=== PATIENT | female | born 1995 | race Hispanic/Latino ===

== ENCOUNTER 2018-03-30 21:29 | Emergency (ER) | payer OTHER ==
[2018-03-30 22:17] LABS: Urine Blood 3+ (NEG); Urine Glucose NEGATIVE (NEG); Urine Protein NEGATIVE (NEG)
[2018-03-30 22:26] LABS: Absolute Lymphocytes (CBC) 3.1 K/uL (0.7-4.9); Absolute Monocytes 0.7 K/uL (0.1-1.3); Absolute Neutrophil 5.8 K/uL (1.8-8.0); Basophils % 0.7 % (0-1.3); Eosinophils % 1.2 % (0-4.4); Hematocrit 39.5 % (36.0-45.0); Lymphocytes % 31.9 % (15.3-44.8); MPV 8.1 fL (7.6-11.3); Monocytes % 7.6 % (3.3-12.3); RBC Red Blood Cell Count 4.58 M/uL (3.86-4.86)
[2018-03-30] MEDS ORDERED: ONDANSETRON 4 MG/2 ML VIAL ONE (22:36)
[2018-03-30] MEDS ORDERED: KETOROLAC 30 MG/ML INJ ONE (22:36)
[2018-03-30 22:40] LABS: BUN Blood Urea Nitrogen 12 mg/dL (7-18); Bicarbonate 28 mmol/L (21-32); Glucose Level 105 mg/dL (74-106); Potassium 3.8 mmol/L (3.5-5.1); Sodium Level 141 mmol/L (136-145)
--- NOTE | 2018-03-30 23:58 | EDPHYS ---
Physician Documentation [facility] Name: Bren Angulo Age: 22 yrs Sex: Female : 1995 Arrival Date: 03/30/2018 Time: 21:30 Bed Treatment Private MD: ED Physician Triston Salinas HPI: 03/30 23:39 This 22 yrs old Female presents to ER via Ambulatory with complaints of kb Abdominal Pain. 23:39 The patient presents with abdominal pain in the left lower quadrant. Onset: The kb symptoms/episode began/occurred 2 day(s) ago. The symptoms do not radiate. Associated signs and symptoms: Pertinent positives: nausea, Pertinent negatives: anorexia, blood in stools, chest pain, constipation, diarrhea, dysuria, fever, headache, hematuria, palpitations, shortness of breath, vaginal discharge, vomiting, vomiting blood. The symptoms are described as constant. Modifying factors: The symptoms are alleviated by nothing, the symptoms are aggravated by pressure. Severity of pain: At its worst the pain was moderate in the emergency department the pain is unchanged. The patient has not experienced similar symptoms in the past. The patient has not recently seen a physician. 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 - Social history:: Smoking status: Patient/guardian denies using tobacco. - Ebola Screening: : No symptoms or risks identified at this time. ROS: 23:38 Constitutional: Negative for fever, chills, and weight loss, Cardiovascular: Negative kb for chest pain, palpitations, and edema, Respiratory: Negative for shortness of breath, cough, wheezing, and pleuritic chest pain, Back: Negative for injury and pain, MS/Extremity: Negative for injury and deformity, Skin: Negative for injury, rash, and discoloration, Neuro: Negative for headache, weakness, numbness, tingling, and seizure. 23:38 Abdomen/GI: Positive for abdominal pain, nausea, Negative for vomiting, diarrhea, constipation. Exam: 23:38 Constitutional: This is a well developed, well nourished patient who is awake, alert, kb and in no acute distress. Head/Face: Normocephalic, atraumatic. Chest/axilla: Normal chest wall appearance and motion. Nontender with no deformity. No lesions are appreciated. Cardiovascular: Regular rate and rhythm with a normal S1 and S2. No gallops, murmurs, or rubs. Normal PMI, no JVD. No pulse deficits. Respiratory: Lungs have equal breath sounds bilaterally, clear to auscultation and percussion. No rales, rhonchi or wheezes noted. No increased work of breathing, no retractions or nasal flaring. Back: No spinal tenderness. No costovertebral tenderness. Full range of motion. Skin: Warm, dry with normal turgor. Normal color with no rashes, no lesions, and no evidence of cellulitis. MS/ Extremity: Pulses equal, no cyanosis. Neurovascular intact. Full, normal range of motion. Neuro: Awake and alert, GCS 15, oriented to person, place, time, and situation. Cranial nerves II-XII grossly intact. Motor strength 5/5 in all extremities. Sensory grossly intact. Cerebellar exam normal. Normal gait. 23:38 Abdomen/GI: Inspection: abdomen appears normal, Bowel sounds: normal, in all quadrants, Palpation: soft, in all quadrants, moderate abdominal tenderness, in the left lower quadrant. Vital Signs: 21:36 BP 107 / 60; Pulse 72; Resp 16; Temp 98.3; Pulse Ox 100% on R/A; Weight 92.99 kg (R); ak1 Height 5 ft. 5 in. (165.10 cm) (R); Pain 7/10; 21:36 Body Mass Index 34.11 (92.99 kg, 165.10 cm) ak1 MDM: 21:45 Patient medically screened. kb 23:39 Data reviewed: vital signs, nurses notes. Data interpreted: Pulse oximetry: on room air kb is 100 %. Interpretation: normal. Counseling: I had a detailed discussion with the patient and/or guardian regarding: the historical points, exam findings, and any diagnostic results supporting the discharge/admit diagnosis, lab results, radiology results, the need for outpatient follow up, a family practitioner, to return to the emergency department if symptoms worsen or persist or if there are any questions or concerns that arise at home. 03/30 21:57 Order name: Basic Metabolic Panel; Complete Time: 22:41 kb 03/30 21:57 Order name: CBC with Diff; Complete Time: 22:34 kb 03/30 22:14 Order name: Urine Dipstick--Ancillary (enter results) 2 03/30 22:14 Order name: Urine --Ancillary (enter results) 2 03/30 22:15 Order name: Urine Dipstick-Ancillary; Complete Time: 22:19 EDNV 03/30 22:15 Order name: Urine --Ancillary; Complete Time: 22:19 [facility] 03/30 21:57 Order name: IV Saline Lock; Complete Time: 22:32 kb 03/30 21:57 Order name: Labs collected and sent; Complete Time: 22:32 kb 03/30 21:57 Order name: Urine Dipstick-Ancillary (obtain specimen) 03/30 22:19 Order name: CT Stone Protocol kb Administered Medications: 22:31 Drug: TORadol 30 mg Route: IVP; Site: right antecubital; jl3 23:25 Follow up: Response: No adverse reaction; Pain is decreased jl3 22:31 Drug: Zofran 4 mg Route: IVP; Site: right antecubital; jl3 23:24 Follow up: Response: No adverse reaction; Nausea is decreased jl3 Disposition: 03/30/18 23:57 Discharged to Home. Impression: Lower abdominal pain, unspecified. - Condition is Stable. - Discharge Instructions: Abdominal Pain, Adult, [id number]. - Prescriptions for Diclofenac Sodium 75 mg Oral Tablet, Delayed Release (E.C.) - take 1 tablet by ORAL route 2 times per day As needed; 30 tablet. - Medication Reconciliation Form, Thank You Letter, Antibiotic Education, Prescription Opioid Use form. - Follow up: Emergency Department; When: As needed; Reason: Worsening of condition. Follow up: Private Physician; When: 2 - 3 days; Reason: Recheck today's complaints, Continuance of care, Re-evaluation by your physician. Addendum: 04/07/2018 03:27 Co-signature as Attending Physician, Triston Salinas MD. g s Signatures: Dispatcher [employer] EDNV Nelda Shanks, SIMEON-C MECHANICAL HANDYMAN-Pk Brown RN RN jl3 Vida Esquivel RN RN ak1 Triston Salinas MD MD gs Corrections: (The following items were deleted from the chart) 03/31 00:32 03/30 23:57 03/30/2018 23:57 Discharged to Home. Impression: Lower abdominal pain, jl3 unspecified. Condition is Stable. Forms are Medication Reconciliation Form, Thank You Letter, Antibiotic Education, Prescription Opioid Use. Follow up: Emergency Department; When: As needed; Reason: Worsening of condition. Follow up: Private Physician; When: 2 - 3 days; Reason: Recheck today's complaints, Continuance of care, Re-evaluation by your physician. kb
--- NOTE | 2018-03-30 23:58 | ER ---
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 pt c/o ak1 nausea. pt denies vomiting, denies diarrhea. Transition of care: patient was not received from another setting of care. Onset of symptoms was March 28, 2018. Risk Assessment: Do you want to hurt yourself or someone else? Patient reports no desire to harm self or others. Initial Sepsis Screen: Does the patient meet any 2 criteria? No. Patient's initial sepsis screen is negative. Does the patient have a suspected source of infection? No. Patient's initial sepsis screen is negative. Care prior to arrival: None. 21:37 Method Of Arrival: Ambulatory ak1 21:37 Acuity: MARVIN 3 ak1 Triage Assessment: 21:38 General: Appears in no apparent distress. Behavior is calm, cooperative. Pain: ak1 Complains of pain in left lower quadrant. 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 - Social history:: Smoking status: Patient/guardian denies using tobacco. - Ebola Screening: : No symptoms or risks identified at this time. Screenin:29 Abuse screen: None noted. Nutritional screening: No deficits noted. Tuberculosis jl3 screening: No symptoms or risk factors identified. Fall Risk None identified. Assessment: 22:32 General: Appears in no apparent distress. comfortable, well groomed, Behavior is calm, jl3 cooperative. General: Pt c/o L. flank pain x2 days. Denies vomiting and diarrhea but c/o nausea. NKA, no home meds. Pain: Complains of pain in anterior aspect of left lateral abdomen and left upper quadrant Pain does not radiate. Pain currently is 6 out of 10 on a pain scale. Quality of pain is described as crampy, tender, Pain began 2-3 days ago. Neuro: No deficits noted. Cardiovascular: No deficits noted. Respiratory: No deficits noted. GI: Bowel sounds present X 4 quads. Abdomen is tender to palpation in left upper quadrant. : No deficits noted. EENT: No deficits noted. Derm: No deficits noted. Musculoskeletal: No deficits noted. Vital Signs: 21:36 BP 107 / 60; Pulse 72; Resp 16; Temp 98.3; Pulse Ox 100% on R/A; Weight 92.99 kg (R); ak1 Height 5 ft. 5 in. (165.10 cm) (R); Pain 7/10; 21:36 Body Mass Index 34.11 (92.99 kg, 165.10 cm) ak1 ED Course: 21:30 Patient arrived in ED. ag3 21:31 [facility]C [facility] kb 21:31 Triston Salinas MD is Attending Physician. kb 21:36 Arm band placed on Patient placed in an exam room, on a stretcher, Patient notified of ak1 wait time. 21:37 Triage completed. ak1 21:44 Pk Mata, DEION is Primary Nurse. jl3 22:21 Inserted saline lock: 22 gauge in right antecubital area, using aseptic technique. Blood collected. 22:22 Initial lab(s) drawn, by ED staff, sent to lab. 22:43 CT Stone Protocol In Process Unspecified. EDMS 23:29 Patient has correct armband on for positive identification. jl3 03/31 00:31 No provider procedures requiring assistance completed. IV discontinued, intact, jl3 bleeding controlled, No redness/swelling at site. Pressure dressing applied. Administered Medications: 03/30 22:31 Drug: TORadol 30 mg Route: IVP; Site: right antecubital; jl3 23:25 Follow up: Response: No adverse reaction; Pain is decreased jl3 22:31 Drug: Zofran 4 mg Route: IVP; Site: right antecubital; jl3 23:24 Follow up: Response: No adverse reaction; Nausea is decreased jl3 Outcome: 23:57 Discharge ordered by . kb 03/31 00:32 Discharged to home ambulatory. jl3 Condition: good Discharge instructions given to patient, Prescriptions given X 1. 00:32 Patient left the ED. jl3 Signatures: Dispatcher [employer] EDMS Nelda Shanks, Pk Mccord RN RN jl3 Vida Esquivel RN RN ak1 Chelsi Barton ag3 Lisbet Franklin gm Corrections: (The following items were deleted from the chart) 03/30 21:38 21:36 Pulse 80bpm; Resp 16bpm; Pulse Ox 100% RA; Temp 98.3F; 92.99 kg Reported; Height ak1 5 ft. 5 in. Reported; BMI: 34.1; Pain 7/10; ak1
[2018-03-31 01:31] VITALS: BP 107/60; TEMP 98.3; O2SAT 100
--- NOTE | 2018-03-31 09:11 | RAD REPORT ---
EXAM DESCRIPTION: CT - Stone Protocol - 03/31/2018 1:59 am CLINICAL HISTORY: Abdominal pain. Left lower quadrant pain COMPARISON: None. TECHNIQUE: Computed axial tomography of the abdomen pelvis was obtained without oral or IV contrast. Lack of IV and oral contrast limits evaluation of solid organs, bowel, and vessels. Coronal reformat ewa images were obtained and reviewed. Preliminary report generated by [employer] and reviewed prior to dictation All CT scans are performed using dose optimization technique as appropriate and may include automated exposure control or mA/KV adjustment according to patient size. FINDINGS: A renal calculus is not seen. An ureteral calculus is not noted. A bladder calculus is not present. The liver, spleen, pancreas and adrenals appear grossly normal There is no evidence of diverticulitis. Mild stranding is present adjacent to the mid descending colo n. A 17 millimeter fatty mass lies adjacent consistent with epiploic appendagitis The appendix appears normal. An adnexal mass is not noted IMPRESSION: Negative for a genitourinary calculus Epiploic appendagitis of the descending colon
== END 2018-03-31 00:32 | disposition home or self-care (01) ==
LOC: ER 21:29
DX: R10.32 Left lower quadrant pain (principal)
CPT/HCPCS: 36415; 74176; 76377; 80048; 81003; 81025; 85025; J2405

== ENCOUNTER 2021-11-29 20:41 | Emergency (ER) | payer BC ==
--- NOTE | 2021-11-29 22:25 | RAD REPORT ---
EXAM DESCRIPTION: CT - Head C Spine Mpr Wo Con - 11/29/2021 10:12 pm CLINICAL HISTORY: Numbness/amnesia COMPARISON: None. TECHNIQUE: Computed axial tomography of the head and cervical spine was obtained. Sagittal and coronal reconstruction was performed. All CT scans are performed using dose optimization technique as appropriate and may include automated exposure control or mA/KV adjustment according to patient size. FINDINGS: An intracranial bleed is not seen. The ventricles are normal in caliber. An extra-axial fl uid collection is not noted.Fluid within the visualized sinuses and mastoids is not seen A cervical fracture is not visualized. No dislocation is noted. No high-grade central/foraminal steno sis seen IMPRESSION: No acute intracranial abnormality is seen. A cervical fracture is not visualized. If the patient continues to have symptoms to suggest intracranial /spinal cord pathology then MRI wou ld be recommended
[2021-11-29 22:43] LABS: Urine Blood Negative (Negative); Urine Glucose Negative (Negative); Urine Protein Trace (Negative); Urine Specific Gravity >=1.030 (1.005-1.030)
[2021-11-29 23:18] LABS: SARS-CoV-2 Antigen Rapid Res Negative (Negative)
--- NOTE | 2021-11-29 23:28 | ER ---
Nurse's Notes [facility] Name: Bren Angulo Age: 26 yrs Sex: Female : 1995 Arrival Date: 11/29/2021 Time: 20:43 Bed 10 Private MD: Diagnosis: Paresthesia of skin;Syncope Near;Headache Presentation: 11/29 21:00 Chief complaint: Patient states: "When I got home from work my hands started tingling as6 so I laid down and closed my eyes and I woke up on my floor and I had thrown up" pt does not remember falling. pt now c/o headache. Coronavirus screen: At this time, the client does not indicate any symptoms associated with coronavirus-19. Ebola Screen: No symptoms or risks identified at this time. Initial Sepsis Screen: Does the patient meet any 2 criteria? No. Patient's initial sepsis screen is negative. Does the patient have a suspected source of infection? No. Patient's initial sepsis screen is negative. Risk Assessment: Do you want to hurt yourself or someone else? Patient reports no desire to harm self or others. Onset of symptoms was November 29, 2021 at 19:30. 21:00 Method Of Arrival: Ambulatory as6 21:00 Acuity: MARVIN 3 as6 Triage Assessment: 23:45 General: Appears in no apparent distress. comfortable. Pain: Denies pain. jj7 23:45 General: Behavior is calm, cooperative, appropriate for age. jj7 Historical: - Allergies: 21:04 No Known Allergies; as6 - Home Meds: 21:04 Wellbutrin SR 150 mg Oral SR12 1 tab once daily [Active]; as6 - PMHx: 21:04 Depressive disorder; as6 - PSHx: 21:04 Tonsillectomy; arm; as6 - Immunization history:: Client reports receiving the 2nd dose of the Covid vaccine, moderna. - Social history:: Smoking status: Patient denies any tobacco usage or history of. Screenin:45 Abuse screen: Denies threats or abuse. Nutritional screening: No deficits noted. jj7 Tuberculosis screening: No symptoms or risk factors identified. Fall Risk None identified. Vital Signs: 21:00 BP 136 / 84; Pulse 83; Resp 16 S; Temp 98.8(O); Pulse Ox 96% on R/A; Weight 102.06 kg as6 (R); Height 5 ft. 5 in. (165.10 cm) (R); Pain 0/10; 23:45 BP 147 / 90; Pulse 72; Resp 18; Pulse Ox 99% ; Pain 0/10; jj7 21:00 Body Mass Index 37.44 (102.06 kg, 165.10 cm) as6 ED Course: 20:43 Patient arrived in ED. ja2 20:50 Nelda Shanks FNP-C is PHCP. kb 20:51 Kennedy Hernandez DO is Attending Physician. kb 20:52 PHCP role handed off by Nelda Shanks FNP-C snw 20:52 Batsheva Son FNP-C is PHCP. snw 21:04 Triage completed. as6 21:06 Arm band placed on. as6 22:06 Flu Sent. kl 22:06 SARS RAPID Sent. kl 22:13 CT Head C Spine In Process Unspecified. EDMS 23:45 Bed in low position. Call light in reach. jj7 23:45 No provider procedures requiring assistance completed. jj7 23:45 Patient did not have IV access during this emergency room visit. jj7 Administered Medications: No medications were administered Medication: 23:45 VIS not applicable for this client. jj7 Outcome: 23:28 Discharge ordered by . snw 23:45 Discharged to home ambulatory, with family. jj7 23:45 Condition: good 23:45 Discharge instructions given to patient. 11/30 00:02 Patient left the ED. jj7 Signatures: Dispatcher [employer] EDUT Nelda Shanks FNP-C FNP-Ckb Lewis, Kimberly, RN RN Batsheva Díaz FNP-C FNP-Csnw Alexander, Jessica ja2 Marty De La Cruz RN RN asLeonid Molina RN RN jj7
--- NOTE | 2021-11-29 23:28 | EDPHYS ---
Physician Documentation [facility] Name: Bren Angulo Age: 26 yrs Sex: Female : 1995 Arrival Date: 11/29/2021 Time: 20:43 Bed 10 Private MD: ED Physician Kennedy Hernandez HPI: 11/29 22:07 This 26 yrs old Female presents to ER via Ambulatory with complaints of snw Fainting. 22:07 The patient has experienced syncope, lost consciousness. Onset: The symptoms/episode snw began/occurred suddenly, just prior to arrival. Duration: This was a single episode, that lasted an unknown period of time. Context: the episode(s) was witnessed, by no one, occurred at home, occurred while the patient was at rest, Just prior to the episode the patient experienced tingling. Associated injury: Head/face: left side of forehead, contusion. Associated signs and symptoms: Pertinent positives: vomiting. Current symptoms: headache, that is mild. The patient has not experienced similar symptoms in the past. pt's PCP recently changed pt's anti-depressant. Historical: - Allergies: 21:04 No Known Allergies; as6 - Home Meds: 21:04 Wellbutrin SR 150 mg Oral SR12 1 tab once daily [Active]; as6 - PMHx: 21:04 Depressive disorder; as6 - PSHx: 21:04 Tonsillectomy; arm; as6 - Immunization history:: Client reports receiving the 2nd dose of the Covid vaccine, moderna. - Social history:: Smoking status: Patient denies any tobacco usage or history of. ROS: 22:05 Constitutional: Negative for fever, chills, and weight loss, Eyes: Negative for injury, snw pain, redness, and discharge, ENT: Negative for injury, pain, and discharge, Neck: Negative for injury, pain, and swelling, Cardiovascular: Negative for chest pain, palpitations, and edema, Respiratory: Negative for shortness of breath, cough, wheezing, and pleuritic chest pain, Abdomen/GI: Negative for abdominal pain, nausea, vomiting, diarrhea, and constipation, Back: Negative for injury and pain, : Negative for injury, bleeding, discharge, and swelling, MS/Extremity: Negative for injury and deformity, Skin: Negative for injury, rash, and discoloration. 22:05 Neuro: Positive for pt felt fingertips tingling bilaterally while holding her phone in her bed. Pt put the phone down and awoke on the floor next to the bed with vomit in her mouth unable to recall how she got there. pt states her head and neck felt tight and angel. . Exam: 22:00 Constitutional: This is a well developed, well nourished patient who is awake, alert, snw and in no acute distress. Eyes: Pupils equal round and reactive to light, extra-ocular motions intact. Lids and lashes normal. Conjunctiva and sclera are non-icteric and not injected. Cornea within normal limits. Periorbital areas with no swelling, redness, or edema. Neck: Trachea midline, no thyromegaly or masses palpated, and no cervical lymphadenopathy. Supple, full range of motion without nuchal rigidity, or vertebral point tenderness. No Meningismus. Chest/axilla: Normal chest wall appearance and motion. Nontender with no deformity. No lesions are appreciated. Cardiovascular: Regular rate and rhythm with a normal S1 and S2. No gallops, murmurs, or rubs. Normal PMI, no JVD. No pulse deficits. Respiratory: Lungs have equal breath sounds bilaterally, clear to auscultation and percussion. No rales, rhonchi or wheezes noted. No increased work of breathing, no retractions or nasal flaring. Abdomen/GI: Soft, non-tender, with normal bowel sounds. No distension or tympany. No guarding or rebound. No evidence of tenderness throughout. Back: No spinal tenderness. No costovertebral tenderness. Full range of motion. Skin: Warm, dry with normal turgor. Normal color with no rashes, no lesions, and no evidence of cellulitis. MS/ Extremity: Pulses equal, no cyanosis. Neurovascular intact. Full, normal range of motion. Psych: Awake, alert, with orientation to person, place and time. Behavior, mood, and affect are within normal limits. 22:00 Head/face: Noted is contusion, to left lateral forehead. 22:02 ENT: Nose: is normal, Mouth: Oral mucosa: fever blister, Posterior pharynx: erythema, snw that is mild, that is moderate. 22:02 Neuro: Orientation: is normal, Mentation: is normal, Memory: recent memory is impaired, pt does not know how she ended up on the floor. Vital Signs: 21:00 BP 136 / 84; Pulse 83; Resp 16 S; Temp 98.8(O); Pulse Ox 96% on R/A; Weight 102.06 kg as6 (R); Height 5 ft. 5 in. (165.10 cm) (R); Pain 0/10; 23:45 BP 147 / 90; Pulse 72; Resp 18; Pulse Ox 99% ; Pain 0/10; jj7 21:00 Body Mass Index 37.44 (102.06 kg, 165.10 cm) as6 MDM: 22:00 Patient medically screened. snw 22:51 Data reviewed: vital signs, nurses notes, radiologic studies, CT scan. Data snw interpreted: Pulse oximetry: on room air is 96 %. Interpretation: acceptable. Counseling: I had a detailed discussion with the patient and/or guardian regarding: the historical points, exam findings, and any diagnostic results supporting the discharge/admit diagnosis, the presence of at least one elevated blood pressure reading (>120/80) during this emergency department visit, lab results, radiology results, the need for outpatient follow up, to return to the emergency department if symptoms worsen or persist or if there are any questions or concerns that arise at home. Response to treatment: the patient's symptoms have markedly improved after treatment. 11/29 20:58 Order name: Urine Culture [facility] 11/29 20:58 Order name: Urine Microscopic Only; Complete Time: 03:22 [facility] 11/29 21:58 Order name: SARS RAPID; Complete Time: 23:22 sn 11/29 21:58 Order name: Flu; Complete Time: 23:22 [facility] 11/29 22:44 Order name: Urine Dipstick-Ancillary; Complete Time: 22:49 EDMS 11/29 20:58 Order name: Urine Dipstick-Ancillary (obtain specimen) [facility] 11/29 20:58 Order name: Urine Test (obtain specimen) [facility] 11/29 21:58 Order name: CT Head C Spine; Complete Time: 22:31 snw Administered Medications: No medications were administered Disposition: 11/30 03:22 Co-signature as Attending Physician, Kennedy HUA was immediately available onsite ms3 in the emergency department for consultation in the care of the patient. Disposition Summary: 11/29/21 23:28 Discharge Ordered Location: Home snw Condition: Stable snw Diagnosis - Paresthesia of skin snw - Syncope Near snw - Headache snw Followup: snw - With: Emergency Department - When: As needed - Reason: Worsening of condition Followup: snw - With: Private Physician - When: 1 - 2 days - Reason: Recheck today's complaints, Continuance of care, Re-evaluation by your physician Discharge Instructions: - Form - Excuse from Work, School, or Physical Activity kl - Discharge Summary Sheet snw - Head Injury, Adult snw - Paresthesia snw - Form - Headache Record snw Forms: - Work release form kl - Medication Reconciliation Form snw - Thank You Letter snw - Antibiotic Education snw - Prescription Opioid Use snw Signatures: Dispatcher [employer] EDMS Batsheva Son FNP-C ACCOUNT PROCESSOR-Csnw Kennedy Hernandez DO DO ms3 Marty De La Cruz RN RN as6 Corrections: (The following items were deleted from the chart) 11/29 22:05 22:00 Head/face: Noted is contusion, snw snw
[2021-11-29 23:33] LABS: Urine Bacteria 20-50 /HPF (<20); Urine Mucus Slight /HPF (None Seen); Urine RBC <5 /HPF (None Seen)
[2021-12-01 08:34] VITALS: TEMP 98.8
[2021-12-01 08:56] VITALS: BP 147/90; O2SAT 99
== END 2021-11-30 00:02 | disposition home or self-care (01) ==
LOC: ER 20:41
DX: R55 Syncope and collapse (principal); R51.9 Headache, unspecified; R20.2 Paresthesia of skin; Z20.822 Contact with and (suspected) exposure to COVID-19
CPT/HCPCS: 36415; 70450; 72125; 81003; 81015; 87086; 87088; 87804; 87811; 99283